=== PATIENT | female | born 1995 | race Caucasian/White ===

== ENCOUNTER 2018-02-04 12:10 | Emergency (ER) | payer OTHER ==
[2018-02-04] MEDS ORDERED: Ibuprofen TAB* 800 MG PO ONE (13:31)
--- NOTE | 2018-02-04 13:39 | ED ---
Complex/Multi-Sys Presentation - HPI Summary HPI Summary: A 22 y/o female presents to ED c/o running injury reaching 7/10 in severity. In the ED room, the patient has a pulse of 67 BPM, O2 saturation of 97% and blood pressure of 114/98. As per triage, "pt states running a week ago and thought she pulled a glut. states pain since and radiating into right hip. difficult to walk. googled it and beleives a stress fracture to pelvis. taking advil all week , last dose 1130". According to the patient, she experienced a running injury approximately one week ago. She initially had difficulty localizing the pain as it changed day by day such as moving from her lower back to her glute area. However, this weekend, the pain has become worse with it currently being on the right-side of hip. Pt denies any leg pain, spinal pain or abdominal pain, but does have lower right sided back pain. Patient denies any . Patient has been using ibuprofen all week to alleviate symptoms, did not use heat pads. - History Of Current Complaint Chief Complaint: EDHipPelvisInjury Time Seen by Provider: 02/04/18 13:17 Hx Obtained From: Patient Onset/Duration: Sudden Onset, Lasting Days - About 1 week, Still Present, Worse Since - Onset Timing: Constant Severity Currently: Moderate - 710 Location: Pain At: - Right hip, right lower back Aggravating Factor(s): NOTHING Alleviating Factor(s): NOTHING Associated Signs And Symptoms: Positive: Back Pain. Negative: Abdominal Pain, Fever - Allergies/Home Medications Allergies/Adverse Reactions: Allergies Allergy/AdvReac Type Severity Reaction Status Date / Time No Known Allergies Allergy Verified 02/04/18 13:22 PMH/Surg Hx/FS Hx/Imm Hx Endocrine/Hematology History: Denies: Hx Diabetes Cardiovascular History: Denies: Hx Hypertension Respiratory History: Reports: Other Respiratory Problems/Disorders - Patient gets chronic bronchitis when she gets sick sometimes. - Surgical History Surgery Procedure, Year, and Place: Jaw surgery, right tibia was fixed after accident. Infectious Disease History: No Infectious Disease History: Denies: Traveled Outside the [place] in Last 30 Days - Family History Known Family History: Negative: Hypertension, Diabetes - Social History Alcohol Use: Occasionally Substance Use Type: Reports: None Smoking Status (MU): Never Smoked Tobacco Review of Systems Negative: Fever Negative: Abdominal Pain Positive: Other - POSITIVE: Right hip pain, right lower back pain; NEGATIVE: Leg pain, spinal pain All Other Systems Reviewed And Are Negative: Yes Physical Exam - Summary Physical Exam Summary: Appearance: Well appearing, no pain distress Skin: warm, dry, reflects adequate perfusion Head/face: normal Eyes: EOMI, VIVIANE ENT: normal Neck: supple, non-tender Respiratory: CTA, breath sounds present Cardiovascular: RRR, pulses symmetrical Abdomen: non-tender, soft Bowel: present Musculoskeletal: Tenderness in right sacroiliac joint, strength/ROM intact Neuro: normal, sensory motor intact, A&Ox3 Triage Information Reviewed: Yes Vital Signs On Initial Exam: Initial Vitals Temp Pulse Resp BP Pulse Ox 97.3 F 64 17 120/53 100 02/04/18 12:27 02/04/18 12:27 02/04/18 12:27 02/04/18 12:27 02/04/18 12:27 Vital Signs Reviewed: Yes Diagnostics - Vital Signs Vital Signs Temp Pulse Resp BP Pulse Ox 02/04/18 12:27 97.3 F 64 17 120/53 100 - Laboratory Lab Statement: Any lab studies that have been ordered have been reviewed, and results considered in the medical decision making process. - Radiology PELVIS XR Radiology Interpretation Completed By: Radiologist - No radiographic evidence of fracture or other focal bony abnormality. IF THE PATIENT'S SYMPTOMS PERSIST RECOMMEND FOLLOW-UP IMAGING. ED PHYSICIAN REVIEWED THIS RADIOLOGY REPORT. Re-Evaluation - Re-Evaluation First Eval Re-Evaluation Time: 14:35 Comment: Discussed plan and discharge with patient. Complex Multi-Symp Course/Dx Course Of Treatment: A 22 y/o female presents to ED c/o running injury reaching 7/10 in severity. In the ED room, the patient has a pulse of 67 BPM, O2 saturation of 97% and blood pressure of 114/98. She initially had difficulty localizing the pain as it changed day by day such as moving from her lower back to her glute area. However, this weekend, the pain has become worse with it currently being on the right-side of hip. A Pelvis XR revealed to be within normal limits. In the ED course, the patient recieved Motrin. Patient will be discharged with a diagnosis of Sacroiliitis and back pain. Patient is to follow up with Orthopedics in 3 days. Patient is agreeable with this plan. - Diagnoses Differential Diagnoses/HQI/PQRI: Other - back pain/fracture/sacroileitis Provider Diagnoses: Back pain, Sacroiliitis Discharge - Sign-Out/Discharge Documenting (check all that apply): Patient Departure - DISCHARGE - Discharge Plan Condition: Stable Disposition: HOME Prescriptions: Oxycodone HCl/Acetaminophen [Percocet 5-325 mg Tablet] 1 each PO TID #9 tablet MDD 3 Patient Education Materials: Muscle Strain (ED), Sacroiliitis (ED), Back Pain ( ED) Referrals: [facility] [Outside] - 3 Days Deanna Bloom MD [Medical Doctor] - 3 Days Additional Instructions: FOLLOW UP WITH ORTHOPEDICS IN 3 DAYS. PLEASE CALL ORTHOPEDICS AT [phone] TO SCHEDULE YOUR APPOINTMENT. RETURN TO ED FOR ANY NEW OR WORSENING SYMPTOMS. - Billing Disposition and Condition Condition: STABLE Disposition: Home - Attestation Statements Document Initiated by Mildredibe: Yes Documenting Scribe: Alexis Mcpherson Provider For Whom Jade is Documenting (Include Credential): Pierce Brewer MD Scribe Attestation: Alexis Elder scribed for Pierce Brewer MD on 02/04/18 at 1508. Scribe Documentation Reviewed: Yes Provider Attestation: The documentation as recorded by the Alexis villafana accurately reflects the service I personally performed and the decisions made by , Pierce Brewer MD
--- NOTE | 2018-02-04 14:32 | RAD ---
INDICATION: Right hip and groin pain x1 week after running TECHNIQUE: An AP view of the pelvis was obtained. FINDINGS: The bones are in normal alignment. No fracture is seen. Joint spaces appear maintained. IMPRESSION: No radiographic evidence of fracture or other focal bony abnormality. IF THE PATIENT'S SYMPTOMS PERSIST RECOMMEND FOLLOW-UP IMAGING.
[2018-02-04 14:49] VITALS: BP 128/78
== END 2018-02-04 14:49 | disposition home or self-care (01) ==
LOC: ED 12:10
DX: M54.5 Low back pain (principal); M46.1 Sacroiliitis, not elsewhere classified
CPT/HCPCS: 72170; 99282

== ENCOUNTER 2018-10-12 21:02 | Emergency (ER) | payer OTHER ==
[2018-10-12 21:15] VITALS: BP 117/77
[2018-10-12] MEDS ORDERED: Albuterol 2.5 MG/3 ML NEB.SOL* (0.083%) INH ONE (21:29)
[2018-10-12] MEDS ORDERED: Ipratropium 0.5MG/2.5ML NEB* 0.5 MG/2.5 ML NEB.SOLN INH ONE (21:29)
[2018-10-12] MEDS ORDERED: PrednisoLONE 3 MG/ML ORAL.SOLU 15 MG/5 ML ORAL.SOLN PO ONE (22:18)
--- NOTE | 2018-10-12 22:18 | UC ---
Respiratory Complaint HPI - HPI Summary HPI Summary: 23 yo female with one week hx of chest tightness and feeling she can't take a complete breath No hx of asthma but has MDI and nebulizer for apparent RAD with URIs thinks she may have KELLEN - History of Current Complaint Chief Complaint: UCRespiratory Stated Complaint: SOB Time Seen by Provider: 10/12/18 21:13 Hx Obtained From: Patient Hx Last Menstrual Period: 10/10/18 Onset/Duration: Sudden Onset, Gradual Onset, Lasting Hours Severity Initially: Mild Severity Currently: Mild Pain Intensity: 3 Pain Scale Used: 0-10 Numeric Character: Cough: Nonproductive - and heber Aggravating Factors: Allergens - ? Alleviating Factors: Nothing Associated Signs And Symptoms: Positive: Negative - Allergies/Home Medications Allergies/Adverse Reactions: Allergies Allergy/AdvReac Type Severity Reaction Status Date / Time No Known Allergies Allergy Verified 10/12/18 21:16 PMH/Surg Hx/FS Hx/Imm Hx Previously Healthy: Yes Respiratory History: Bronchitis - Surgical History Surgical History: Yes Surgery Procedure, Year, and Place: Jaw surgery, right tibia was fixed after accident. - Family History Known Family History: Negative: Hypertension, Diabetes - Social History Alcohol Use: Occasionally Substance Use Type: None Smoking Status (MU): Never Smoked Tobacco Review of Systems All Other Systems Reviewed And Are Negative: Yes Constitutional: Positive: Negative Skin: Positive: Negative Eyes: Positive: Negative ENT: Positive: Negative Respiratory: Positive: Cough - rare/chest feels tight Cardiovascular: Positive: Negative Gastrointestinal: Positive: Negative Genitourinary: Positive: Negative Motor: Positive: Negative Neurovascular: Positive: Negative Musculoskeletal: Positive: Negative Neurological: Positive: Negative Psychological: Positive: Negative Physical Exam Triage Information Reviewed: Yes Appearance: Well-Appearing, No Pain Distress, Well-Nourished Vital Signs: Initial Vital Signs Temp 98.8 F 10/12/18 21:09 Pulse 85 10/12/18 21:09 Resp 16 10/12/18 21:09 BP 117/77 10/12/18 21:09 Pulse Ox 100 10/12/18 21:09 Vital Signs Reviewed: Yes Eyes: Positive: Conjunctiva Clear ENT: Positive: Hearing grossly normal. Negative: Nasal congestion, Nasal drainage, Tonsillar swelling, Tonsillar exudate, Hoarse voice Neck: Positive: Supple, Nontender, No Lymphadenopathy Respiratory: Positive: Lungs clear, Normal breath sounds, No respiratory distress, No accessory muscle use Cardiovascular: Positive: RRR, No Murmur Musculoskeletal: Positive: ROM Intact, No Edema Neurological: Positive: Alert Psychological Exam: Normal Skin Exam: Normal Re-Evaluation - Re-Evaluation First Eval Re-Evaluation Time: 22:13 Change: Improved - pat improved after neb Respiratory Course/Dx - Differential Dx/Diagnosis Provider Diagnosis: Bronchospasm Discharge - Sign-Out/Discharge Documenting (check all that apply): Patient Departure All imaging exams completed and their final reports reviewed: No Studies - Discharge Plan Condition: Stable Disposition: HOME Patient Education Materials: Bronchospasm (ED) Referrals: No Primary Care Phys,NOPCP [Primary Care Provider] - - Billing Disposition and Condition Condition: STABLE Disposition: Home
--- NOTE | 2018-10-15 14:16 | UC ---
- Progress Note Progress Note: Pt called saying that she was seen a few days ago for URI symptoms. Advised to use to her inhaler and neb at home, but pt called today and says that her inhaler is very old and she does not feel it is effective - requesting a new one. Rx sent. Advised to be rechecked if she is not feeling improved with this. Course/Dx - Diagnoses Provider Diagnoses: Bronchospasm Discharge - Sign-Out/Discharge Documenting (check all that apply): Post-Discharge Follow Up All imaging exams completed and their final reports reviewed: No Studies - Discharge Plan Condition: Stable Disposition: HOME Prescriptions: Albuterol HFA INHALER* [Ventolin HFA Inhaler*] 1 - 2 puff INH Q6H PRN #1 mdi PRN Reason: Sob/Wheezing PrednisoLONE 3 MG/ML ORAL.SOLU [PrednisoLONE 3 MG/ML 5 ml ORAL.SOLUTION*] 42 mg PO DAILY #56 oral.soln Patient Education Materials: Bronchospasm (ED) Referrals: David Martinez MD [Medical Doctor] - 1 Week Additional Instructions: use your inhaler 2 puffs 4x day for 5-7 days - Billing Disposition and Condition Condition: STABLE Disposition: Home
== END 2018-10-12 22:33 | disposition home or self-care (01) ==
LOC: UCEAST 21:02
DX: J98.01 Acute bronchospasm (principal)
CPT/HCPCS: 99212; G0463; J7510

== ENCOUNTER 2018-12-03 19:58 | Emergency (ER) | payer OTHER ==
[2018-12-03 20:32] VITALS: BP 113/56
--- NOTE | 2018-12-03 21:07 | UC ---
Lower Extremity/Ankle HPI - HPI Summary HPI Summary: 23 yo female with injury to left foot a cow stepped on her foot able to bear wt. - History of Current Complaint Chief Complaint: UCLowerExtremity Stated Complaint: LEFT FOOT INJURY Time Seen by Provider: 12/03/18 20:36 Hx Obtained From: Patient Hx Last Menstrual Period: 11/21/18 Onset/Duration: Gradual Onset Severity Initially: Severe Severity Currently: Mild Pain Intensity: 4 Pain Scale Used: 0-10 Numeric Aggravating Factor(s): Standing Alleviating Factor(s): Rest Able to Bear Weight: Yes Feet (Multiple View): 1 - tender/swollen - Allergies/Home Medications Allergies/Adverse Reactions: Allergies Allergy/AdvReac Type Severity Reaction Status Date / Time No Known Allergies Allergy Verified 12/03/18 20:25 PMH/Surg Hx/FS Hx/Imm Hx Previously Healthy: Yes - Surgical History Surgical History: Yes Surgery Procedure, Year, and Place: Jaw surgery, right tibia was fixed after accident. - Family History Known Family History: Negative: Hypertension, Diabetes - Social History Alcohol Use: Occasionally Substance Use Type: None Smoking Status (MU): Never Smoked Tobacco Review of Systems All Other Systems Reviewed And Are Negative: Yes Constitutional: Positive: Negative Skin: Positive: Negative Eyes: Positive: Negative ENT: Positive: Negative Respiratory: Positive: Negative Cardiovascular: Positive: Negative Gastrointestinal: Positive: Negative Genitourinary: Positive: Negative Motor: Positive: Negative Neurovascular: Positive: Negative Musculoskeletal: Positive: Arthralgia Neurological: Positive: Negative Psychological: Positive: Negative Physical Exam Triage Information Reviewed: Yes Appearance: Well-Appearing, No Pain Distress, Well-Nourished Vital Signs: Initial Vital Signs Temp 98.4 F 12/03/18 20:16 Pulse 68 12/03/18 20:16 Resp 12 12/03/18 20:16 BP 113/56 12/03/18 20:16 Pulse Ox 100 12/03/18 20:16 Vital Signs Reviewed: Yes Eyes: Positive: Conjunctiva Clear ENT: Positive: Hearing grossly normal. Negative: Nasal congestion, Nasal drainage, Trismus, Muffled voice, Hoarse voice Dental Exam: Normal Neck: Positive: Supple, Nontender, No Lymphadenopathy Respiratory: Positive: Lungs clear, Normal breath sounds, No respiratory distress, No accessory muscle use Cardiovascular: Positive: RRR, No Murmur Musculoskeletal: Positive: ROM Intact, Edema @ - see image Neurological: Positive: Alert Psychological Exam: Normal Skin Exam: Normal Diagnostics - Radiology No standard instances Radiology Interpretation Completed By: ED Physician Summary of Radiographic Findings: no fx noted Lower Extremity Course/Dx - Differential Dx/Diagnosis Provider Diagnosis: Contusion of left foot Discharge - Sign-Out/Discharge Documenting (check all that apply): Patient Departure All imaging exams completed and their final reports reviewed: No - Discharge Plan Condition: Stable Disposition: HOME Patient Education Materials: Foot Contusion (ED), R.I.C.E. Treatment (ED) Referrals: [facility] [Outside] Additional Instructions: official xr report pending recheck in 2 weeks if not better - Billing Disposition and Condition Condition: STABLE Disposition: Home
--- NOTE | 2018-12-04 12:35 | UC ---
- Progress Note Progress Note: xray report left foot : IMPRESSION: No fracture of the left foot is noted. Course/Dx - Diagnoses Provider Diagnoses: Contusion of left foot Discharge - Sign-Out/Discharge Documenting (check all that apply): Patient Departure All imaging exams completed and their final reports reviewed: Yes - Discharge Plan Condition: Stable Disposition: HOME Patient Education Materials: Foot Contusion (ED), R.I.C.E. Treatment (ED) Referrals: [facility] [place] [facility] [Outside] Additional Instructions: official xr report pending recheck in 2 weeks if not better - Billing Disposition and Condition Condition: STABLE Disposition: Home
== END 2018-12-03 21:21 | disposition home or self-care (01) ==
LOC: UCEAST 19:58
DX: S90.32XA Contusion of left foot, initial encounter (principal); W55.29XA Other contact with cow, initial encounter; Y92.9 Unspecified place or not applicable
CPT/HCPCS: 99212; G0463

== ENCOUNTER 2019-07-28 18:30 | Emergency (ER) | payer OTHER ==
[2019-07-28 18:43] VITALS: BP 120/62
--- NOTE | 2019-07-28 18:58 | UC ---
Back Pain HPI - HPI Summary HPI Summary: 24-year-old female presents with complaints of tailbone pain and bruising. States yesterday she was tubing and accidentally hit a chunk of ice that was in the snow. Have a severe pain immediately after the injury however did improve with some rest. Continues to have mild pain especially with walking and sitting. She has taken ibuprofen with improvement in the pain. Denies urinary or bowel incontinence, difficulty defecating, weakness, numbness, or tingling of the lower extremities. - History of Current Complaint Chief Complaint: UCBackPain Stated Complaint: TAIL BONE INJURY Time Seen by Provider: 07/28/19 18:45 Hx Obtained From: Patient Hx Last Menstrual Period: 10 days ago Pain Intensity: 4 - Allergies/Home Medications Allergies/Adverse Reactions: Allergies Allergy/AdvReac Type Severity Reaction Status Date / Time No Known Allergies Allergy Verified 07/28/19 18:43 PMH/Surg Hx/FS Hx/Imm Hx Previously Healthy: Yes - Denies significant PMH - Surgical History Surgical History: Yes Surgery Procedure, Year, and Place: Jaw surgery, right tibia was fixed after accident. - Family History Known Family History: Positive: Non-Contributory - Social History Occupation: Student Lives: Dormitory/Roommates Alcohol Use: Occasionally Substance Use Type: None Smoking Status (MU): Never Smoked Tobacco Review of Systems All Other Systems Reviewed And Are Negative: Yes Constitutional: Positive: Negative Skin: Positive: Bruising Respiratory: Positive: Negative Cardiovascular: Positive: Negative Gastrointestinal: Positive: Negative Genitourinary: Positive: Negative Musculoskeletal: Positive: Other: - See HPI Neurological/Mental Status: Negative: Weakness, Paresthesia, Numbness Physical Exam - Summary Physical Exam Summary: GENERAL APPEARANCE: Well developed, well nourished, alert and cooperative, and appears to be in no acute distress. CARDIAC: Normal S1 and S2. No S3, S4 or murmurs. Rhythm is regular. There is no peripheral edema, cyanosis or pallor. Extremities are warm and well perfused. Capillary refill is less than 2 seconds. Peripheral pulses intact. LUNGS: Clear to auscultation without rales, rhonchi, wheezing or diminished breath sounds. ABDOMEN: Positive bowel sounds. Soft, nondistended, nontender. No guarding or rebound. No masses or hepatosplenomegally. MUSKULOSKELETAL: ROM intact to all extremities. No joint erythema or tenderness. Normal muscular development. Normal gait. BACK: Mild tenderness over the coccyx with ecchymosis. No gross deformity or crepitus. Shanel Hendrix RN machine hand. EXTREMITIES: No significant deformity or joint abnormality. No edema. NEUROLOGICAL: Strength and sensation symmetric and intact to the lower extremities. SKIN: Skin normal color, texture and turgor with no lesions or eruptions. Triage Information Reviewed: Yes Vital Signs: Initial Vital Signs Temp 98.1 F 07/28/19 18:39 Pulse 66 07/28/19 18:39 Resp 12 07/28/19 18:39 BP 120/62 07/28/19 18:39 Pulse Ox 100 07/28/19 18:39 Vital Signs Reviewed: Yes Back Pain Course/Dx - Course Course Of Treatment: 24-year-old female presents with complaints of tailbone pain and bruising. States yesterday she was tubing and accidentally hit a chunk of ice that was in the snow. Have a severe pain immediately after the injury however did improve with some rest. Continues to have mild pain especially with walking and sitting. She has taken ibuprofen with improvement in the pain. Denies urinary or bowel incontinence, difficulty defecating, weakness, numbness, or tingling of the lower extremities. Afebrile. Vital signs stable. Patient had mild tenderness over the coccyx with ecchymosis. There was no gross deformity or crepitus. Strength and sensation to her lower extremities were intact. Remainder of exam was unremarkable. Preliminary reading of the x-ray will showed no acute fracture. Results were reviewed with the patient. Recommending conservative treatment for traumatic coccydynia including pressure reduction using a donut pillow, [id number] analgesics, and cold therapy. She is to return here or follow-up with the [facility] in 5-7 days if symptoms are not improving. Anticipatory guidance and warning symptoms are reviewed with the patient. Verbalizes understanding and agrees with plan of care. - Differential Dx/Diagnosis Differential Diagnosis/HQI/PQRI: Fracture, Other - Contusion Provider Diagnosis: Coccyx contusion Discharge ED - Sign-Out/Discharge Documenting (check all that apply): Patient Departure All imaging exams completed and their final reports reviewed: No - Discharge Plan Condition: Stable Disposition: HOME Patient Education Materials: Coccyx Injury (ED) Referrals: No Primary Care Phys,NOPCP [Primary Care Provider] - Additional Instructions: The x-ray performed in the clinic today showed no evidence of a fracture. The x- ray will be reviewed by the radiologist tomorrow and we will contact you if they see anything that changes your plan of care. Try to minimize the pressure over the tailbone while sitting by using a donut pillow. Apply ice to the affected area for 15-20 minutes at least 4 times a day to help with the pain and swelling. Take acetaminophen (Tylenol) or ibuprofen (Advil, Motrin) according to directions as needed for pain. Return here or [facility]7 days if symptoms do not improve. Seek immediate medical attention if you have severe pain not managed with pain medication, you are unable to walk or bear any weight, develop numbness, tingling, or weakness in your lower extremities, have difficulty urinating or having a bowel movement, lose control or your bowels or bladder, or have any worsening of symptoms. - Billing Disposition and Condition Condition: STABLE Disposition: Home
--- NOTE | 2019-07-29 08:32 | UC ---
- Progress Note Progress Note: reviewed radiology reading --negative for fracture. Wet read correct, no change. Course/Dx - Diagnoses Provider Diagnoses: Coccyx contusion Discharge ED - Sign-Out/Discharge Documenting (check all that apply): Post-Discharge Follow Up All imaging exams completed and their final reports reviewed: Yes - Discharge Plan Condition: Stable Disposition: HOME Patient Education Materials: Coccyx Injury (ED) Referrals: No Primary Care Phys,NOPCP [Primary Care Provider] - Additional Instructions: The x-ray performed in the clinic today showed no evidence of a fracture. The x- ray will be reviewed by the radiologist tomorrow and we will contact you if they see anything that changes your plan of care. Try to minimize the pressure over the tailbone while sitting by using a donut pillow. Apply ice to the affected area for 15-20 minutes at least 4 times a day to help with the pain and swelling. Take acetaminophen (Tylenol) or ibuprofen (Advil, Motrin) according to directions as needed for pain. Return here or follow up with the [facility] in 5-7 days if symptoms do not improve. Seek immediate medical attention if you have severe pain not managed with pain medication, you are unable to walk or bear any weight, develop numbness, tingling, or weakness in your lower extremities, have difficulty urinating or having a bowel movement, lose control or your bowels or bladder, or have any worsening of symptoms. - Billing Disposition and Condition Condition: STABLE Disposition: Home
== END 2019-07-28 19:44 | disposition home or self-care (01) ==
LOC: UCEAST 18:30
DX: S30.0XXA Contusion of lower back and pelvis, initial encounter (principal); W22.8XXA Striking against or struck by other objects, initial encounter; Y93.29 Activity, other involving ice and snow; Y92.9 Unspecified place or not applicable
CPT/HCPCS: 72220; 99211; G0463